=== PATIENT | male | born 2000 | race Caucasian/White ===

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

== ENCOUNTER → 2019-05-15 | Outpatient (CLI) | payer BC ==
[2019-05-15 11:10] LABS: HEMATOCRIT 45.4 % (42.0-52.0); HEMOGLOBIN 15.1 g/dl (13.5-17.5); MEAN CORPUSCULAR HEMOGLOBIN 30.5 pg (27.0-33.0); MEAN CORPUSCULAR HGB CONC 33.3 g/dl (32.0-36.5); MEAN CORPUSCULAR VOLUME 91.7 fl (80.0-96.0); PLATELET COUNT, AUTOMATED 212 10^3/uL (150-450); RED BLOOD COUNT 4.95 10^6/uL (4.30-6.10); WHITE BLOOD COUNT 5.3 10^3/uL (4.0-10.0)
[2019-05-15 13:26] LABS: ESTRADIOL 42.6 PG/ML (<39.8); LUTEINIZING HORMONE 5.9 mIU/mL (1.5-9.3)
== END ==
LOC: M LAB 09:05
DX: C62.90 Malignant neoplasm of unspecified testis, unspecified whether descended or undescended (principal)

== ENCOUNTER → 2019-11-29 | Outpatient (CLI) | payer BC | LOC: M LAB 09:33 | DX: C62.90 Malignant neoplasm of unspecified testis, unspecified whether descended or undescended (principal) ==

== ENCOUNTER → 2019-11-29 | Outpatient (CLI) | payer BC ==
--- NOTE | 2019-11-29 10:37 | REP ---
Clinical: History of testicular carcinoma . Comparison: 10/05/2017 . Technique: PA and lateral. Findings: The mediastinum and cardiac silhouette are normal. The lung lainez are clear and without acute consolidation, effusion, or pneumothorax. The skeletal structures are intact and normal. Impression: 1. No acute cardiopulmonary process. Electronically Signed by Sriram Mckeon MD 11/29/2019 10:28 A
== END ==
LOC: M LAB 09:29
PROVIDERS: ATTEND Urology
DX: C62.90 Malignant neoplasm of unspecified testis, unspecified whether descended or undescended (principal)

== ENCOUNTER → 2019-12-13 | Outpatient (REF) | payer BC ==
[~2019-12-13] MED LIST changes: +ACET650T61 PO; -TYLE650T35 PO
== END ==
LOC: M LAB 09:39
DX: C62.90 Malignant neoplasm of unspecified testis, unspecified whether descended or undescended (principal)

== ENCOUNTER → 2020-07-27 | Outpatient (CLI) | payer BC ==
[2020-07-27 09:53] LABS: HEMOGLOBIN 16.5 g/dl (13.5-17.5); MEAN CORPUSCULAR VOLUME 90.9 fl (80.0-96.0); PLATELET COUNT, AUTOMATED 281 10^3/uL (150-450)
[2020-07-28 11:11] LABS: ESTRADIOL 25.6 PG/ML (<39.8); LUTEINIZING HORMONE 5.1 mIU/mL (1.5-9.3)
== END ==
LOC: M LAB 08:23
DX: C62.90 Malignant neoplasm of unspecified testis, unspecified whether descended or undescended (principal)

== ENCOUNTER → 2020-07-27 | Outpatient (CLI) | payer BC ==
--- NOTE | 2020-07-27 09:30 | REP ---
INDICATION: MALIG NEOPLASM OF UNSP TESTIS, LAB 1ST THEN XR COMPARISON: 11/29/2019. TECHNIQUE: PA/Lateral FINDINGS: Lungs: Clear, no infiltrate. Heart: Normal in size. Mediastinum: Mediastinal silhouette unremarkable. Pleural angles: Unremarkable.. Bones and soft tissues: Unremarkable. IMPRESSION: No acute pulmonary disease. <Electronically signed by Jamal Snell > 07/27/20 0927
[2020-07-27 10:17] LABS: LDH LACTATE DEHYDROGENASE 155 U/L (87-241)
== END ==
LOC: M LAB 08:26
PROVIDERS: ATTEND Urology
DX: C62.90 Malignant neoplasm of unspecified testis, unspecified whether descended or undescended (principal)